=== PATIENT | female | born 1935 | race Caucasian/White ===

== ENCOUNTER → 2017-02-10 | Outpatient (CLI) | payer MEDICARE ==
[~2017-02-10] MED LIST: ACET-1311 PO; CALC500C70 PO; FLUT0.15; HYDR25TA4 PO; MRLP17 PO; RXC5 PO; SIMV40TA2 PO
== END | disposition home or self-care (01) ==
LOC: C.MAMM 12:48
PROVIDERS: ATTEND Family Medicine
DX: M81.0 Age-related osteoporosis without current pathological fracture (principal)

== ENCOUNTER → 2017-07-27 | Outpatient (CLI) | payer MEDICARE ==
--- NOTE | 2017-07-27 13:04 | DIAGNOSTIC IMAGING REPORT ---
L-SPINE MIN 4 VIEWS ROUTINE CLINICAL HISTORY: 82 years-old Female presenting with HYPERLIPIDEMIA. TECHNIQUE: Frontal, bilateral oblique, and lateral views lumbar spine were obtained and coned in lateral view of the lumbosacral junction. COMPARISON: Correlation made to CT from 11/12/2016. FINDINGS: Mild scoliotic curvature of the lumbar spine. Significant anterior vertebral body height loss of L1 consistent with compression deformity. The degree of anterior vertebral body height loss is greater than on prior CT. The vertebral body measures 14 mm anteriorly in comparison to the posterior height of 24 mm, previously anterior height measured 19 mm versus posterior height of 25 mm. Vacuum disc phenomenon noted at T12-L1, consistent with degenerative change. The presence of mild scoliosis and the compression deformity somewhat limits evaluation of the neural foramina. Within this limitation, no radiographically apparent osseous neural foraminal narrowing. Nonobstructive bowel gas pattern. Atherosclerosis. IMPRESSION: Interval increase in anterior vertebral body height loss of L1 since prior CT on 11/12/2016. This is consistent with compression fracture. Limited degenerative changes as above. Electronically signed by: Dada March M.D. 07/27/2017 1:02 PM Dictated Date/Time: 07/27/2017 12:59 PM
== END | disposition home or self-care (01) ==
LOC: C.RAD1850 12:23
PROVIDERS: ATTEND Family Medicine
DX: I10 Essential (primary) hypertension (principal); E78.5 Hyperlipidemia, unspecified

== ENCOUNTER → 2017-11-17 | Outpatient (CLI) | payer MEDICARE ==
--- NOTE | 2017-11-17 09:08 | DIAGNOSTIC IMAGING REPORT ---
AORTIC ANEURYSM RETROPERI CLINICAL HISTORY: 82 years-old Female presenting with INFRARENAL AAA. TECHNIQUE: Real-time grayscale and color and spectral Doppler ultrasound imaging of the abdominal aorta and iliac arteries was performed. COMPARISON: Correlation made to CT of the abdomen and pelvis from 11/12/2016. FINDINGS: Proximal aorta: Atherosclerosis. Transverse dimension 1.8 x 1.8 cm. Mid aorta: Atherosclerosis. Transverse dimension 1.9 x 2.0 cm. Distal aorta: Atherosclerosis. Transverse dimension 2.9 x 3.1 cm. Right iliac artery: Atherosclerosis. Transverse dimension 1.0 cm. Left iliac artery: Atherosclerosis. Transverse dimension 0.8 cm. IMPRESSION: 1. Infrarenal abdominal aortic aneurysm measuring up to 3.1 cm in transverse dimension. Electronically signed by: Dada March M.D. 11/17/2017 9:07 AM Dictated Date/Time: 11/17/2017 9:06 AM
== END | disposition home or self-care (01) ==
LOC: C.ULTR 08:23
PROVIDERS: ATTEND Family Medicine
DX: I71.4 Abdominal aortic aneurysm, without rupture (principal)